=== PATIENT | female | born 1985 | race American Indian/Alaskan Native ===

== ENCOUNTER 2017-07-18 08:52 | Emergency (ER) | payer OTHER ==
[2017-07-18 09:17] VITALS: RESP 16; TEMP 99; O2SAT 100
[2017-07-18] MEDS ORDERED: Sodium Chloride 0.9% 1,000 ML IV ONE (09:27)
--- NOTE | 2017-07-18 09:30 | C.PDOC ---
History Of Present Illness 31 yo female, presents s/p syncopal episode. pt states "she was standing on train and next thing she remembers is waking up on floor". pt states was at baseline previously. denies any complaints prior and at this time. no fevers, martinez , n/v/d, cp, sob, cough. lmp 2 weeks ago. Time Seen by Provider: 07/18/17 09:20 Chief Complaint (Nursing): Syncope Past Medical History Reviewed: Historical Data, Nursing Documentation, Vital Signs Vital Signs: Last Vital Signs Temp 99.0 F 07/18/17 09:00 Pulse 72 07/18/17 09:00 Resp 16 07/18/17 09:00 BP 120/71 07/18/17 09:00 Pulse Ox 100 07/18/17 10:45 - Medical History PMH: Asthma Family History: States: Unknown Family Hx - Social History Hx Alcohol Use: No Hx Substance Use: No - Immunization History Hx Influenza Vaccination: Yes Review Of Systems Except As Marked, All Systems Reviewed And Found Negative. Physical Exam - Physical Exam Appears: Well, No Acute Distress, Other (smiling, texting on phone in nad) Skin: Normal Color, Warm, Dry Head: Atraumatic, Normacephalic Eye(s): bilateral: Normal Inspection, PERRL, EOMI Nose: Normal Throat: Normal Neck: Normal Cardiovascular: Rhythm Regular Respiratory: Normal Breath Sounds Gastrointestinal/Abdominal: Normal Exam, Soft, No Tenderness, No Guarding, No Rebound Back: Normal Inspection Extremity: Normal ROM Neurological/Psych: Oriented x3, Normal Speech, Normal Cognition, Normal Cranial Nerves, No Cerebellar Signs, Normal Motor, Normal Sensation ED Course And Treatment - Laboratory Results Result Diagrams: 07/18/17 10:11 07/18/17 10:50 O2 Sat by Pulse Oximetry: 100 Medical Decision Making Medical Decision Making: syncope r/o metabolic, infectious, dehydration- labs pending- ekg nsr [address] t wave changes normal interval.s 1045: pt reassesed states feeling better. labs ua pending. 120: pt reassesed asympomatic in er. no pain, neuro intact. demorest syncope, neg. Disposition - Disposition Disposition: HOME/ ROUTINE Disposition Time: 13:19 Condition: STABLE Additional Instructions: please follow up with your doctor/specialists. return to er with worsening symptoms or concerns. Instructions: Syncope (ED) Forms: [facility] (Pashto) - Clinical Impression Clinical Impression: Syncope
[2017-07-18 10:24] LABS: BASO % 0.1 % (0.0-2.0); EOS # 0.1 K/uL (0.0-0.7); EOS % 1.1 % (0.0-4.0); HEMOGLOBIN 13.6 g/dL (11.0-16.0); LYMPH # 1.3 K/uL (1.0-4.3); LYMPH % 13.7 % (20.0-40.0); MEAN CELL VOLUME 89.5 fL (81.0-99.0); MEAN CORPUSCULAR HEMOGLOBIN 30.7 pg (27.0-31.0); MEAN CORPUSCULAR HGB CONC 34.3 g/dL (33.0-37.0); MONO # 0.5 K/uL (0.0-0.8); MONO % 5.6 % (0.0-10.0); NEUT # 7.8 K/uL (1.8-7.0); NEUT % 79.5 % (50.0-75.0); RBC 4.42 Mil/uL (3.80-5.20); RED CELL DISTRIBUTION WIDTH 13.8 % (11.5-14.5); WHITE BLOOD COUNT 9.8 K/uL (4.8-10.8)
[2017-07-18 11:17] LABS: ALB/GLOB RATIO 1.2 (1.0-2.1); ALBUMIN 4.5 g/dL (3.5-5.0)
[2017-07-18 11:27] LABS: HCG,QUALITATIVE URINE NEGATIVE (NEGATIVE)
[2017-07-18 11:29] LABS: PROTHROMBIN TIME 11.2 SECONDS (9.7-12.2)
[2017-07-18 11:37] LABS: SQUAMOUS EPITHIAL 1 /hpf (0-5); URINE BILIRUBIN NEGATIVE (NEGATIVE); URINE BLOOD NEGATIVE (NEGATIVE); URINE CLARITY Clear (Clear); URINE COLOR Straw (YELLOW); URINE GLUCOSE (UA) NORMAL (Normal); URINE LEUKOCYTE ESTERASE NEG Leu/uL (Negative); URINE NITRATE NEGATIVE (NEGATIVE); URINE PROTEIN NEGATIVE (NEGATIVE); URINE UROBILINOGEN NORMAL mg/dL (0.2-1.0)
--- NOTE | 2017-07-18 12:02 | RAD ---
HISTORY: syncope COMPARISON: None available. TECHNIQUE: Chest PA and lateral FINDINGS: LUNGS: No focal consolidation. Please note that chest x-ray has limited sensitivity for the detection of pulmonary masses. PLEURA: No significant pleural effusion identified. No definite pneumothorax . CARDIOVASCULAR: The cardiomediastinal silhouette appears within normal limits of size. OSSEOUS STRUCTURES: No acute osseous abnormality identified. VISUALIZED UPPER ABDOMEN: Unremarkable. OTHER FINDINGS: None. IMPRESSION: No focal consolidation, significant pleural effusion, or definite pneumothorax identified.
--- NOTE | 2017-07-18 13:07 | CT ---
PROCEDURE: CT scan brain dated 07/18/2017 HISTORY: Syncope COMPARISON: No prior. TECHNIQUE: Axial computed tomography images were obtained through the head/brain without intravenous contrast. Radiation dose: Total exam DLP = 932.71 mGy-cm. This CT exam was performed using one or more of the following dose reduction techniques: Automated exposure control, adjustment of the mA and/or kV according to patient size, and/or use of iterative reconstruction technique. FINDINGS: HEMORRHAGE: No acute parenchymal, subarachnoid nor extra-axial hemorrhage. BRAIN: No mass effect or edema. No atrophy or chronic microvascular ischemic changes. VENTRICLES: No obstructive hydrocephalus. CALVARIUM: Calvarium appears intact PARANASAL SINUSES: Visualized paranasal sinuses well-developed and currently well-aerated. MASTOID AIR CELLS: Unremarkable as visualized. No inflammatory changes. OTHER FINDINGS: None. IMPRESSION: No acute intracranial hemorrhage.
[2017-07-18 13:15] LABS: ALT/SGPT 17 U/L (9-52); AST/SGOT 22 U/L (14-36); BLOOD UREA NITROGEN 15 mg/dL (7-17); CALCIUM 9.3 mg/dl (8.6-10.4); GFR AFRICAN-AMERICAN > 60; GFR NON-AFRICAN AMERICAN > 60
[2017-07-18 14:00] VITALS: BP 116/73; PULSE 62
== END 2017-07-18 14:04 | disposition home or self-care (01) ==
LOC: C.ER 08:52
DX: R55 Syncope and collapse (principal)